=== PATIENT | female | born 1985 | race African-American/Black ===

== ENCOUNTER 2017-02-15 15:24 | Emergency (ER) | payer SELFPAY ==
[~2017-02-15] VITALS: Ht 165.1 cm; Wt 130.0 kg
[~2017-02-15 15:24] MED LIST: ATOR80TA41 PO; BLOOKIT19; GLUCOMTESTSTRIPS XX; INSU-118; LANTUS2P SC; LISI5 PO; METF500 PO; TYLE500T PO; ZOFR4TAB3 SL; [UNRECOGNIZED DRUG - CODE]
[2017-02-15 15:26] VITALS: BP 194/100; PULSE 100; RESP 20; TEMP 99; O2SAT 97
--- NOTE | 2017-02-15 16:50 | PD ---
HPI Chief Complaint: Skin Problem Time Seen by Provider: 16:44 Travel History International Travel<30 days: No Contact w/Intl Traveler<30days: No Traveled to known affect area: No History of Present Illness HPI 30-year-old female that presents to the ED for evaluation of lesion to the left labia. Per patient she shaved on Friday in the groin area and she does not know if she injury abnormality causing infection from shaving. She states that she is a diabetic. She denies any STD exposure but she states that she could have one. She denies any . States that the pain is only noted when she urinates but not really when she sees but more on the area where she has the lesion. Per patient she cannot see it because of the location but she states that is tender and she is concerned. She has never had anything like this before. Per patient the symptoms didn't start until 2 days after she shaved. She has no allergies to medication. No vaginal discharge. Pain per patient is 2 out of 10. PFSH Past Medical History Cancer: No Diabetes: Yes Patient Takes Glucophage: No Diminished Hearing: No Endocrine: Yes Genitourinary: No Headaches: Yes Hypertension: Yes Musculoskeletal: Yes (LOW BACK PAIN X1 YEAR- INJURY AT WORK) Psychiatric: No Reproductive: No Immunizations Current: No Migraines: Yes ?: Not : 1 Para: 0 Miscarriage: 1 : 0 Ectopic : Yes (one fallopian tube burst after previous ectopic ) Ovarian Cysts: Yes (ON RIGHT) Past Surgical History Gynecologic Surgery: Yes (removal of left fallopian tube ) Social History Alcohol Use: Yes Tobacco Use: Yes Substance Use: No Allergies-Medications (Allergen,Severity, Reaction): Coded Allergies: No Known Allergies (Verified , 02/15/17) Reported Meds & Prescriptions Reported Meds & Active Scripts Active No Active Prescriptions or Reported Medications Review of Systems Except as stated in HPI: all other systems reviewed are Neg Physical Exam Narrative GENERAL: SKIN: Warm and dry. HEAD: Atraumatic. Normocephalic. EYES: Pupils equal and round. No scleral icterus. No injection or drainage. ENT: No nasal bleeding or discharge. Mucous membranes pink and moist. Tongue is midline. No blood deviation. NECK: Trachea midline. No JVD. CARDIOVASCULAR: Regular rate and rhythm. RESPIRATORY: No accessory muscle use. Clear to auscultation. Breath sounds equal bilaterally. GASTROINTESTINAL: Abdomen soft, non-tender, nondistended. Hepatic and splenic margins not palpable. Vaginal exam: The with female nurse present. Patient does have what appears to be a semicircular lesion on the internal side of the left labia. Patient is and the lesion is whitish red. Does appear to have a couple of signs of irregularity what appears to be scratch but does appear to be more circular. Not particularly tender. No lymphadenopathy noted. No vaginal discharge noted. MUSCULOSKELETAL: Extremities without clubbing, cyanosis, or edema. No obvious deformities. NEUROLOGICAL: Awake and alert. No obvious cranial nerve deficits. Motor grossly within normal limits. Five out of 5 muscle strength in the arms and legs. Normal speech. PSYCHIATRIC: Appropriate mood and affect; insight and judgment normal. Data Data Last Documented VS Vital Signs Date Time Temp Pulse Resp B/P Pulse Ox O2 Delivery O2 Flow Rate FiO2 02/15/17 15:26 99.0 100 20 194/100 97 Room Air Orders Rapid Plasmin Reagin Screen (02/15/17 16:03) Gc And Chlamydia Pcr (02/15/17 16:03) Urinalysis - C+S If Indicated (02/15/17 16:03) Ed Urine Pregnancytest Poc (02/15/17 16:03) MDM Medical Decision Making Medical Screen Exam Complete: Yes Emergency Medical Condition: Yes Medical Record Reviewed: Yes Differential Diagnosis STD versus chanquer versus superficial cellulitis versus skin cut Narrative Course 31-year-old female that presents to the ED for evaluation of possible skill injury. Patient was properly examined and was found to have signs and symptoms of unclear etiology. The sore does appear to have signs of being related to shaving but the sore itself is circular manic cannot completely rule out STD as patient cannot really tell if she is ever been exposed to STDs. Concerning for STDs is present there for testing will be done for this. Again from my evaluation this appears to be more related to skin injury but I cannot rule out STD. Urine was done and shows signs of UTI. This time I will treat her infection with Keflex and mupirocin cream. Patient was told that if any of her tests are positive she will be contacted and will be treated accordingly. She agrees with this plan. Follow with PCP. See ED for any worsening symptoms. Diagnosis Primary Impression: Labial abrasion Qualified Code: S30.814A - Labial abrasion, initial encounter Patient Instructions: General Instructions Additional Instructions: Take medication as prescribed. Follow with PCP. See ED worsening symptoms. You will be contacted within the next 48 hours of your results for STD. Med/Other Pt SpecificInfo: Prescription(s) given Scripts No Active Prescriptions or Reported Meds Disposition: 01 DISCHARGE HOME Condition: Stable Keyur Rodriguez Feb 15, 2017 16:50
[2017-02-15 16:51] LABS: BLOOD, URINE NEG (NEG); COMMENT (UR) CULT NOT INDICATED; CULTURE IF INDICATED CULT NOT INDICATED; GLUCOSE,URINE NEG (NEG); KETONE, URINE NEG (NEG); MUCUS URINE FEW /lpf (OCC); NITRITE,URINE NEG (NEG); PH, URINE 6.5 (5.0-8.5); SQUAMOUS EPITHELIAL CELL URINE 17 /hpf (0-5); URINE COLOR YELLOW (YELLW/STRAW)
[2017-02-15] MEDS ORDERED: CEPH-460 PO (16:52)
[2017-02-15] MEDS ORDERED: MUPI2OIN TOPICAL (16:52)
[2017-02-15 21:47] LABS: CHLAMYDIA PCR NOT DETECTED (NOT DETECT); NEISSERIA PCR NOT DETECTED (NOT DETECT)
== END 2017-02-15 17:09 | disposition home or self-care (01) ==
LOC: NEPD 15:24
DX: S30.814A Abrasion of vagina and vulva, initial encounter (principal); E11.9 Type 2 diabetes mellitus without complications; X58.XXXA Exposure to other specified factors, initial encounter; Y93.E8 Activity, other personal hygiene
CPT/HCPCS: 81001; 84703; 86592; 87491; 87591; 99284

== ENCOUNTER 2018-01-04 13:21 | Emergency (ER) | payer SELFPAY ==
[2018-01-04] MEDS ORDERED: SODIUM CHLORIDE 0.9% FLUSH 10 ML FLUSH IVF (13:45)
[2018-01-04 14:16] LABS: AUTOMATED NEUTROPHIL # 5.7 TH/MM3 (1.8-7.7); BASOPHIL # 0.1 TH/MM3 (0-0.2); BASOPHIL % 0.5 % (0.0-2.0); EOSINOPHIL # 0.1 TH/MM3 (0-0.4); EOSINOPHIL % 1.3 % (0.0-4.0); HEMATOCRIT 41.2 % (35.0-46.0); HEMO FLAGS DIFF FINAL; HEMOGLOBIN 14.2 GM/DL (11.6-15.3); LYMPH % 32.9 % (9.0-44.0); LYMPHOCYTE # 3.3 TH/MM3 (1.0-4.8); MEAN CELL VOLUME 83.8 FL (80.0-100.0); MEAN CORPUSCULAR HEMOGLOBIN 28.8 PG (27.0-34.0); MEAN CORPUSCULAR HGB CONC 34.4 % (32.0-36.0); MEAN PLATELET VOLUME 11.1 FL (7.0-11.0); MONO % 7.9 % (0.0-8.0); MONOCYTE # 0.8 TH/MM3 (0-0.9); NEUT % 57.4 % (16.0-70.0); PLATELET COUNT 218 TH/MM3 (150-450); RED BLOOD COUNT 4.92 MIL/MM3 (4.00-5.30); RED CELL DISTRIBUTION WIDTH 12.7 % (11.6-17.2)
[2018-01-04 14:37] LABS: BACTERIA, URINE MOD /hpf; BILIRUBIN, URINE NEG (NEG); BLOOD, URINE NEG (NEG); GLUCOSE,URINE 1000 mg/dL (NEG); KETONE, URINE 10 mg/dL (NEG); MUCUS URINE FEW /lpf (OCC); NITRITE,URINE POS (NEG); SQUAMOUS EPITHELIAL CELL URINE 19 /hpf (0-5); URINE COLOR LIGHT-YELLOW (YELLW/STRAW); URINE LEUKOCYTE ESTERASE LARGE (NEG)
[2018-01-04 14:39] LABS: ALBUMIN 3.4 GM/DL (3.4-5.0); ALT (GPT) 18 U/L (10-53); ANION GAP 10 MEQ/L (5-15); AST (GOT) 12 U/L (15-37); BETA-HYDROXYBUTYRATE 0.23 MMOL/L (0.00-0.39); BICARBONATE 24.5 MEQ/L (21.0-32.0); BLOOD UREA NITROGEN 8 MG/DL (7-18); CALCIUM 9.2 MG/DL (8.5-10.1); CHLORIDE 101 MEQ/L (98-107); CREATININE 1.03 MG/DL (0.50-1.00); GLOMERULAR FILTRATION RATE 74 ML/MIN (>89); GLUCOSE,RANDOM 303 MG/DL (74-106); LIPASE 257 U/L (73-393); POTASSIUM 3.9 MEQ/L (3.5-5.1); SODIUM (NA) 135 MEQ/L (136-145)
[2018-01-04] MEDS: SODIUM CHLOR 0.9% 1000 ML INJ 1,000 ML IV (14:39)
[2018-01-04 14:41] LABS: ALKALINE PHOSPHATASE 135 U/L (45-117); COMMENT (UR) CULTURE INDICATED; CULTURE IF INDICATED CULTURE INDICATED; TOTAL BILIRUBIN ADULT 0.5 MG/DL (0.2-1.0); TOTAL PROTEIN 7.8 GM/DL (6.4-8.2)
[2018-01-04] MEDS: INSULIN HUMAN REGULAR 1,000 UNITS/10 ML VIAL IV PUSH (15:08)
== END 2018-01-04 16:13 | disposition home or self-care (01) ==
LOC: NEPE 13:21
DX: E11.65 Type 2 diabetes mellitus with hyperglycemia (principal); N39.0 Urinary tract infection, site not specified; Z72.0 Tobacco use; Z79.4 Long term (current) use of insulin
CPT/HCPCS: 80053; 81001; 82010; 83690; 84703; 85025; 87077; 87086; 87186; 96374; 99284-25